=== PATIENT | female | born 1955 | race Asian ===

== ENCOUNTER 2024-05-11 14:18 | Outpatient (CLI) | payer OTHER, MEDICAID | END 2024-05-11 14:19 | disposition home or self-care (01) | LOC: CSHMAMMO 14:18 | PROVIDERS: ATTEND Family Medicine | DX: Z12.31 Encounter for screening mammogram for malignant neoplasm of breast (principal); Z13.820 Encounter for screening for osteoporosis; M85.89 Other specified disorders of bone density and structure, multiple sites; Z78.0 Asymptomatic menopausal state | CPT/HCPCS: 77063; 77067; 77080 ==